=== PATIENT | male | born 1950 | race Caucasian/White ===

== ENCOUNTER → 2016-11-19 | Outpatient (CLI) | payer OTHER ==
--- NOTE | 2016-11-22 09:47 | RAD ---
EXAM DESCRIPTION: Knee,Left Complete CLINICAL HISTORY: 66 years Male, PAIN IN LEFT KNEE IMPRESSION: 4 views of the left knee. There is severe degenerative change of the medial compartment with complete joint space loss, subchondral sclerosis and osteophyte formation. Moderate patellofemoral joint and lateral compartment degenerative change. Small joint effusion. Clips seen within the popliteal fossa. No fracture noted. Electronically signed by: Bill Delgado MD 11/22/2016 9:47 AM CDT
--- NOTE | 2016-11-22 09:48 | RAD ---
EXAM DESCRIPTION: Pelvis CLINICAL HISTORY: 66 years Male, PAIN IN LEFT HIP IMPRESSION: 2 views of the pelvis reveals degenerative change of the pubic symphysis, bilateral sacroiliac joints and lower lumbar spine. Symmetrical and unremarkable joint spaces within the hips. The pelvic ring is intact. Electronically signed by: Bill Delgado MD 11/22/2016 9:47 AM CDT
== END ==
LOC: RAD 11:43
PROVIDERS: ATTEND Orthopaedic Surgery
DX: M25.552 Pain in left hip (principal); M25.562 Pain in left knee; M12.862 Other specific arthropathies, not elsewhere classified, left knee; M12.88 Other specific arthropathies, not elsewhere classified, other specified site

== ENCOUNTER → 2017-01-10 | Outpatient (CLI) | payer MEDICARE | END | disposition home or self-care (01) | LOC: RESP 09:53 | PROVIDERS: ATTEND Orthopaedic Surgery | DX: Z01.818 Encounter for other preprocedural examination (principal) ==

== ENCOUNTER 2017-01-26 05:54 | Inpatient (IN) | payer MEDICARE ==
--- NOTE | 2017-01-24 10:00 | HP ---
CHIEF COMPLAINT: left knee pain. HISTORY OF PRESENT ILLNESS: Mr. Pierre is a 66-year-old male with a history of left knee pain that has been secondary to arthritis and has been worsening for quite sometime. He has had no trauma related to the onset of this. He denies any radiation of pain and denies any neurologic symptoms. The pain happens on a daily basis, occurs when he walks and also occurs with range of motion. He has failed conservative measures and, as such, has requested operative intervention. After discussing the risks, benefits and alternatives to that, the patient has given informed consent. PAST SURGICAL HISTORY: 1. Bilateral carpal tunnel release. MEDICATIONS: Please see his current MAR for an updated list. ALLERGIES: NO KNOWN DRUG ALLERGIES. CODE STATUS: Full code. IMMUNIZATIONS: Up to date. SOCIAL HISTORY: The patient does not drink, smoke or use any illicit drugs. FAMILY HISTORY: None pertinent to today's complaint. REVIEW OF SYSTEMS: Negative except as indicated in the History of Present Illness. PHYSICAL EXAMINATION: VITAL SIGNS: Blood pressure 150/86. Pulse 61. Height 6'1". Weight 253. MENTAL STATUS: The patient is awake, alert, and is able to give a good history and participate in the physical. The patient is oriented to person, place and time. SKIN: Normal tone and turgor. HEENT: Normocephalic, atraumatic. Pupils equal, round and reactive. Mucosal membranes are moist. NECK: Normal range of motion. No thyromegaly, no lymphadenopathy. CHEST: Normal respiratory excursion. CARDIAC: Regular rate and rhythm. No murmurs, rubs or gallops. MUSCULOSKELETAL: The bilateral upper extremities show full active range of motion. He has intact sensation and they are warm and well perfused. He has no deformities. The right lower extremity shows full range of motion of the hip. He has some crepitus in the knee with some mild discomfort, but no varus/ valgus or anterior/posterior laxity. He has full extension with flexion to about 120 degrees. The left knee shows pain with range of motion and he has crepitus throughout. Sensation is intact. He has no varus/valgus or anterior/ posterior laxity. It is warm and well perfused. He has 0 to 115 on that side. IMAGING: X-rays show severe arthritis. ASSESSMENT: 1. Arthritis. PLAN: The plan at this point is for total knee arthroplasty. We have discussed the risks, benefits, and alternatives to that and the patient has given informed consent. [facility][id number] [facility]
[~2017-01-26 05:54] MED LIST: LACTATED RINGERS 1,000 ML ONE; SODIUM CHL 0.9% 100ML MINI-BAG 100 ML IVPB ONE; SODIUM CHLORIDE 0.9% 100ML 100 ML IVPB ONE; SODIUM CHLORIDE 0.9% 250ML 250 ML ONE; TRANEXAMIC ACID 1,000 MG/10 ML VIAL ONE; VANCOMYCIN HCL INJ 1,000 MG VIAL IVPB ONE; ceFAZolin SODIUM 1 GM VIAL ONE
[2017-01-26] MEDS ORDERED: fentaNYL CITRATE INJ 50 MCG/ML AMP ONE (06:16)
[2017-01-26] MEDS ORDERED: MORPHINE SULF *EPIDURAL* 1 MG/ML VIAL ONE (06:16)
[2017-01-26] MEDS ORDERED: LIDOCAINE 2 % GEL 5 ML TUBE TOP ONE (06:17)
[2017-01-26] MEDS ORDERED: LACTATED RINGERS 1,000 ML ONE (06:17)
[2017-01-26] MEDS ORDERED: MIDAZOLAM INJ 5 MG/5 ML VIAL ONE (06:17)
[2017-01-26] MEDS ORDERED: VANCOMYCIN HCL INJ 1,000 MG VIAL IVPB ONE ×4 (06:34→18:21)
[2017-01-26] MEDS ORDERED: ceFAZolin SODIUM 1 GM VIAL ONE ×3 (06:38→15:24)
[2017-01-26] MEDS ORDERED: BUPIVACAINE 0.25% W/EPI 50 ML VIAL INJ ONE (06:38)
[2017-01-26] MEDS ORDERED: PROPOFOL 200 MG/20 ML VIAL IV ONE (07:00)
[2017-01-26] MEDS ORDERED: ONDANSETRON INJ 4 MG/2 ML VIAL IV PRN (07:06)
[2017-01-26] MEDS ORDERED: MAGNESIUM HYDROXIDE 30 ML UD PO PRN (07:06)
[2017-01-26] MEDS ORDERED: MORPHINE SULFATE INJ 10 MG/ML VIAL IV PRN (07:06)
[2017-01-26] MEDS ORDERED: TRANEXAMIC ACID INJ 1,000 MG in SODIUM CHLORIDE 0.9% 100ML 100 ML IVPB ONE (07:06)
[2017-01-26] MEDS ORDERED: MORPHINE SULFATE INJ 10 MG/ML VIAL IM PRN (07:06)
[2017-01-26] MEDS ORDERED: ACETAMINOPHEN 500 MG TAB PO PRN (07:06)
[2017-01-26] MEDS ORDERED: ACETAMINOPHEN 325 MG TAB PO PRN (07:06)
[2017-01-26] MEDS ORDERED: BENZOCAINE-MENTH LOZ (CEPACOL) 1 EA LOZ MT PRN (07:06)
[2017-01-26] MEDS ORDERED: SODIUM CHLORIDE 0.9% (FLUSH) 10 ML SYG IV PRN (07:06)
[2017-01-26] MEDS ORDERED: PROMETHAZINE HCL INJ 12.5 MG in SODIUM CHLORIDE 0.9% 50ML 50 ML IVPB PRN (07:06)
[2017-01-26] MEDS ORDERED: ZOLPIDEM TARTRATE 5 MG TAB PO PRN (07:06)
[2017-01-26] MEDS ORDERED: PROMETHAZINE HCL INJ 25 MG in SODIUM CHLORIDE 0.9% 50ML 50 ML IVPB PRN (07:06)
[2017-01-26] MEDS ORDERED: HYDROcodone 5MG/APAP 325MG 1 EA TAB PO PRN (07:06)
[2017-01-26] MEDS ORDERED: NALOXONE HCL INJ 0.4 MG/ML VIAL IV PRN (07:06)
[2017-01-26] MEDS ORDERED: BISACODYL SUPPOSITORY 10 MG PR PRN (07:06)
[2017-01-26] MEDS ORDERED: ALUMINUM & MAGNESIUM HYDROXIDE 30 ML UD PO PRN (07:06)
[2017-01-26] MEDS ORDERED: MORPHINE PCA 1 MG/ML 100ML 1 BAG in PREMIX BAG 1 BAG IVPB SCH (07:30)
[2017-01-26] MEDS ORDERED: TRANEXAMIC ACID 1,000 MG/10 ML VIAL IV ONE (09:34)
[2017-01-26] MEDS ORDERED: MORPHINE PCA 1 MG/ML 100 ML BAG IVPB ONE ×2 (09:42→09:45)
[2017-01-26] MEDS ORDERED: MORPHINE SULFATE INJ 10 MG/ML VIAL IV ONE ×2 (10:20→10:33)
[2017-01-26] MEDS: IV SET AND CAP CHANGE INJ INJ SCH (13:43)
[2017-01-26] MEDS: MAGNESIUM OXIDE 400 MG TAB PO SCH (13:44)
[2017-01-26] MEDS: DEX 5% W/NACL 0.45% 1000ML 1,000 ML IVS PRN (14:26)
[2017-01-26] MEDS ORDERED: ceFAZolin SODIUM 2 GM in SODIUM CHLORIDE 0.9% 100ML 100 ML IVPB SCH (15:00)
[2017-01-26] MEDS ORDERED: SODIUM CHLORIDE 0.9% 100ML 100 ML IVPB ONE ×2 (15:24→23:59)
[2017-01-26] MEDS: ceFAZolin SODIUM 2 GM in SODIUM CHLORIDE 0.9% 100ML 100 ML IVPB SCH (15:37)
[2017-01-26] MEDS ORDERED: SODIUM CHLORIDE 0.9% 50ML 50 ML ONE (16:48)
[2017-01-26] MEDS ORDERED: PROMETHAZINE HCL INJ 25 MG/ML VIAL ONE (16:48)
--- NOTE | 2017-01-26 17:20 | RAD ---
EXAM DESCRIPTION: Knee,Left 2 or More Views CLINICAL HISTORY: 66 years, Male, TKA COMPARISON: November 19, 2016 TECHNIQUE: Two views of the left knee FINDINGS: Postoperative examination demonstrates total knee replacement with the metallic opaque femoral and tibial components in satisfactory alignment. Intra-articular and soft tissue gas from the current surgery is noted. A lucent patellar articular surface is not identified. Good apposition to the underlying bony matrix is present in satisfactory alignment is noted. IMPRESSION: 1. Satisfactory left total knee replacement. Electronically signed by: Jaciel Arriaga MD 01/26/2017 5:19 PM CDT
[2017-01-26] MEDS ORDERED: SODIUM CHLORIDE 0.9% 250ML 250 ML ONE (18:21)
[2017-01-26] MEDS: VANCOMYCIN HCL INJ 1,000 MG in SODIUM CHLORIDE 0.9% 250ML 250 ML IVPB SCH (18:29)
--- NOTE | 2017-01-26 19:43 | PCM.CORE ---
Physician DVT/VTE - Prophylaxis Currently: Patient already on anticoagulation therapy - Nurse DVT Assessment & Total Each Risk Factor Represents 2 Points: Age 60-74, Major Surgery >45 minutes Each Risk Factor is 1 Point: Obesity (BMI >25) DVT Assessment Score: 5 - 5 or more Very High Risk Treatments: Early Ambulation *, Sequential Compression Device Pharmacological: Enoxaparin 30mg SQ BID
[2017-01-26] MEDS: SIMVASTATIN 20 MG TAB PO SCH (20:34)
[2017-01-26] MEDS: DOCUSATE CALCIUM 240 MG CAP PO SCH (20:34)
[2017-01-26] MEDS: ASPIRIN TABLET 325 MG TAB PO SCH (20:34)
[2017-01-26] MEDS: TEMAZEPAM 15 MG CAP PO PRN (22:10)
[2017-01-26] MEDS: CYCLOBENZAPRINE HCL 10 MG TAB PO PRN (22:10)
[2017-01-26] MEDS: HYDROcodone 10MG/APAP 325MG 1 EA TAB PO PRN (22:10)
--- NOTE | 2017-01-26 22:21 | CONS ---
DATE OF CONSULTATION: 01/26/17 SUPERVISING PHYSICIAN: Christopher Sal M.D. HISTORY OF PRESENT ILLNESS: Mr. Pierre is a 66 year-old male patient with an extensive history of left knee pain secondary to arthritis that has become worse over the last several months. He notes that the pain is on a daily basis and it limits his range of motion and makes it difficult for him to walk and function in his job. He has had multiple attempts at conservative measures but has failed to receive any significant pain relief and as such requested operative intervention by Dr. Rush, orthopedic surgeon. The patient had a total left knee arthroplasty today by Dr. Med Rush. The patient was seen in postoperative state in medical consultation. The patient was in stable condition. PAST MEDICAL HISTORY: 1. Hypertension. 2. Hypercholesterolemia. PAST SURGICAL HISTORY: 1. Coronary artery bypass graft times 4 in 2010. 2. Carpal tunnel surgeries in 2016 bilaterally. 3. Appendectomy. 4. Left arm surgery for an infected wound as a child. HOME MEDICATIONS: 1. Mobic 7.5 mg daily. 2. Lopressor 25 mg daily. 3. Zocor 25 mg at bedtime. 4. Lisinopril 5 mg daily. 5. Aspirin 325 mg daily. ALLERGIES: NO KNOWN DRUG ALLERGIES. FAMILY HISTORY: Noncontributory. 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 He is and lives in [place]. He has never smoked. He denies drinking alcohol or using illicit drugs. REVIEW OF SYSTEMS: CONSTITUTIONAL: Denies any fevers, chills or aches. HEENT: Denies any nasal congestion, vision changes or headaches. RESPIRATORY: Denies any shortness of breath, cough or hemoptysis. CARDIOVASCULAR: Denies any chest pains, palpitations or syncopal episodes. ABDOMEN: Denies any change in bowel habits, constipation, diarrhea, nausea or vomiting. GENITOURINARY: Denies any dysuria, hematuria or other urinary symptoms. EXTREMITIES: As noted in the History of Present Illness, postoperative day zero for a left total knee arthroplasty. NEUROLOGIC: Denies any neurological deficits, syncopal episodes or other concerning neurological events. PHYSICAL EXAMINATION: LABORATORY: Postoperative H&H is pending. RADIOLOGY: No additional radiographic studies prior to postoperatively were obtained. ASSESSMENT: 1. Postoperative day zero for left total knee arthroplasty secondary to advanced arthritis having failed to respond to conservative treatment measures in the outpatient setting requiring surgical intervention for pain control. 2. Severe arthritis of both knees affecting the left knee more than the right currently on NSAIDs. 3. Hypertension on medications. PLAN: Will continue to follow the patient as he advances through physical therapy and rehabilitation efforts postoperatively. Will monitor his blood pressure and treat accordingly. Will anticipate discharge at the discretion of Dr. Rush, Orthopedic Services with discharge planning to be continued prior to discharge. Until then, will continue to monitor the patient closely and treat appropriately. #[id number] [facility]
[2017-01-26] MEDS: ENOXAPARIN SODIUM 30 MG/0.3 ML SYG SUBCU SCH (22:28)
[2017-01-27] MEDS ORDERED: SODIUM CHLORIDE 0.9% 100ML 100 ML IVPB ONE ×2 (00:06→07:31)
[2017-01-27] MEDS ORDERED: ceFAZolin SODIUM 1 GM VIAL ONE ×2 (00:06→07:31)
[2017-01-27] MEDS: ceFAZolin SODIUM 2 GM in SODIUM CHLORIDE 0.9% 100ML 100 ML IVPB SCH ×2 (00:10→07:48)
[2017-01-27] MEDS: CYCLOBENZAPRINE HCL 10 MG TAB PO PRN ×2 (05:05→17:26)
[2017-01-27] MEDS: HYDROcodone 10MG/APAP 325MG 1 EA TAB PO PRN ×3 (05:06→21:46)
[2017-01-27] MEDS ORDERED: VANCOMYCIN HCL INJ 1,000 MG VIAL IVPB ONE (06:00)
[2017-01-27] MEDS ORDERED: SODIUM CHLORIDE 0.9% 250ML 250 ML ONE (06:00)
[2017-01-27] MEDS: VANCOMYCIN HCL INJ 1,000 MG in SODIUM CHLORIDE 0.9% 250ML 250 ML IVPB SCH (06:03)
[2017-01-27] MEDS: ASPIRIN TABLET 325 MG TAB PO SCH (08:30)
[2017-01-27] MEDS: METOPROLOL TARTRATE 25 MG TAB PO SCH (08:31)
[2017-01-27] MEDS: MAGNESIUM OXIDE 400 MG TAB PO SCH (08:31)
[2017-01-27] MEDS: LISINOPRIL 5 MG TAB PO SCH (08:31)
[2017-01-27] MEDS: MELOXICAM 7.5 MG TAB PO SCH (08:31)
--- NOTE | 2017-01-27 08:33 | PN ---
DATE: 01/27/17 Postoperative day 1 SUBJECTIVE: He is doing well, sitting up and eating breakfast. OBJECTIVE: Afebrile. Vital signs stable. Dressing is clean, dry and intact. ASSESSMENT: Status post total knee arthroplasty. PLAN: The plan at this point is for him to being weight-bearing as tolerated today. #[id number] [facility]
--- NOTE | 2017-01-27 08:46 | OP ---
DATE OF PROCEDURE: 01/26/17 PREOPERATIVE DIAGNOSIS: 1. Left knee osteoarthritis. POSTOPERATIVE DIAGNOSIS: 1. Left knee osteoarthritis. PROCEDURE: 1. Left total knee arthroplasty. SURGEON: Med Rush MD. TURBINE OPERATOR: Robert Craft CST, SA-C. ANESTHESIA: General. COMPLICATIONS: None. FINDINGS: Severe arthritis with varus deformity. INDICATION: Mr. Pierre has a history of severe knee pain that has been getting progressively worse. He has failed conservative measures and he has requested operative intervention. After discussing the risks, benefits and alternatives to that, the patient has given informed consent for total knee arthroplasty. PROCEDURE: The patient was brought to the Operating Room and placed in supine position. General anesthesia was induced and the patient's leg was sterilely prepped and draped. Following prepping and draping, the distal femur was exposed and using an intramedullary guide, the distal femoral cut was made. The appropriate sized cutting block was measured, pinned into place, and the anterior, posterior, and chamfer cuts were made. The ACL was transected and the tibia was subluxed. Both the medial and lateral menisci were removed. An intramedullary guide was used to make the proximal tibial cut. The appropriate sized base plate was placed and a trial polyethylene was placed. The trial femur was placed, the knee was reduced, and the knee was taken through a range of motion. The knee was stable in anterior, posterior, varus and valgus stress. The patella tracked anatomically without evidence of subluxation or dislocation. After trialing, the trial components were removed and the bony surfaces were thoroughly irrigated with saline. Following irrigation, the surfaces were dried and the final components were cemented into place. The excess cement was removed and the remaining cement was allowed to cure. The knee was again taken through a range of motion to confirm stability. The wound was then irrigated with saline and closure was performed using PDS to approximate the arthrotomy followed by closure of the subcutaneous tissues with a combination of running and interrupted Monocryl sutures. Sterile dressing was placed. The patient was awoken from anesthesia and taken to Recovery. POSTOPERATIVE INSTRUCTIONS: The patient will be weight-bearing as tolerated on postoperative day 1. COMPONENTS: [employer] Triathlon knee, size 5 femur, size 6 tibia, 9 mm insert. #[id number] [facility]
[2017-01-27] MEDS: ENOXAPARIN SODIUM 30 MG/0.3 ML SYG SUBCU SCH ×2 (10:10→23:09)
[2017-01-27] MEDS ORDERED: MORPHINE PCA 1 MG/ML 100 ML BAG IVPB ONE (11:32)
--- NOTE | 2017-01-27 15:13 | PN ---
SUPERVISING PHYSICIAN: Christopher Sal MD DATE: 01/27/17 SUBJECTIVE: The patient has had fairly good control of the pain. He had a little nausea which resolved with Zofran. He remains afebrile. He has been utilizing his CPM and bedside chair and progressing well with his physical therapy. OBJECTIVE: VITAL SIGNS: Temperature 97.6. Pulse 68. Blood pressure 117/71. Saturation 100% on room air. Respirations 16. I&Os show negative balance of 25 with 1350 in, 1375 out. Weight 117 kg. CHEST: Lungs clear to auscultation bilaterally. HEART: Regular rate and rhythm. ABDOMEN: Soft, nontender. Positive bowel sounds. EXTREMITIES: Iceman in place over the left knee with Stalin bandage in place. Pulses distally are strong with capillary refill brisk. NEUROLOGIC: Alert and oriented times three. LABORATORY: Postoperative hemoglobin 13.3, hematocrit 39.5. ASSESSMENT: 1. Postoperative day 1, left total knee arthroplasty secondary to advanced arthritis, having failed to respond to conservative treatment measures in the outpatient setting and requiring surgical intervention for pain control with surgery being performed by the orthopedic surgeon, Dr. Med Rush. 2. Severe arthritis of both knees affecting the left knee more than the right, currently on nonsteroidal anti-inflammatory drugs. 3. Hypertension on medications. PLAN: The patient is progressing well. We will anticipate hopefully discharging after talking Danny in physical therapy this coming Tuesday. As he continues to progress through his physical therapy and rehabilitation, we will continue to followup the patient closely as needed. Until then, we will continue to monitor the patient closely and treat appropriately. Once ready to discharge, he will need close clinical followup with Dr. Rush as well as continued physical therapy at this point to be determined, but tentatively at the [facility]. #[id number] [facility]
[2017-01-27] MEDS: DEX 5% W/NACL 0.45% 1000ML 1,000 ML IVS PRN (15:55)
[2017-01-27] MEDS: SIMVASTATIN 20 MG TAB PO SCH (20:29)
[2017-01-27] MEDS: DOCUSATE CALCIUM 240 MG CAP PO SCH (20:29)
[2017-01-27] MEDS: TEMAZEPAM 15 MG CAP PO PRN (23:31)
[2017-01-28] MEDS: HYDROcodone 10MG/APAP 325MG 1 EA TAB PO PRN (06:21)
[2017-01-28] MEDS: PANTOPRAZOLE SODIUM TAB 40 MG PO SCH (06:22)
[2017-01-28] MEDS: LISINOPRIL 5 MG TAB PO SCH (08:35)
[2017-01-28] MEDS: ASPIRIN TABLET 325 MG TAB PO SCH (08:35)
[2017-01-28] MEDS: MAGNESIUM OXIDE 400 MG TAB PO SCH (08:35)
[2017-01-28] MEDS: METOPROLOL TARTRATE 25 MG TAB PO SCH (08:35)
[2017-01-28] MEDS: MELOXICAM 7.5 MG TAB PO SCH (08:35)
[2017-01-28] MEDS: SODIUM CHLORIDE 0.9% (FLUSH) 10 ML SYG IV SCH ×2 (08:36→21:20)
[2017-01-28] MEDS: CYCLOBENZAPRINE HCL 10 MG TAB PO PRN (08:37)
[2017-01-28] MEDS: HYDROcodone/IBUPROFEN 7.5/200 1 EA TAB PO PRN ×3 (09:23→19:48)
[2017-01-28] MEDS: ENOXAPARIN SODIUM 30 MG/0.3 ML SYG SUBCU SCH ×2 (11:47→23:06)
--- NOTE | 2017-01-28 13:05 | PN ---
DATE: 01/28/17 SUBJECTIVE: Mr. Pierre seems to be doing well. He has his leg bent at 90 degrees without significant pain. OBJECTIVE: Afebrile. Vital signs stable. The wound is clean. There are no signs or symptoms of infection. ASSESSMENT: Status post total knee arthroplasty. PLAN: The plan at this point is to continue with weight-bearing as tolerate and continue on CPM. #[id number] [facility]
--- NOTE | 2017-01-28 14:55 | PN ---
SUPERVISING PHYSICIAN: Christopher Sal MD DATE: 01/28/17 SUBJECTIVE: The patient continues to do well with his rehab. He has had some issues with pain medicine. We will try to switch him to Vicoprofen today. He has been doing his CPM and is up to 90 degrees. He has been afebrile. OBJECTIVE: VITAL SIGNS: Temperature 97.9. Pulse 69. Blood pressure 114/72. Respirations 18. Saturation 98% on room air. I&Os showing positive balance of 1954 with 3140 in, 1175 out. Weight 217.7 kg. CHEST: Lungs clear to auscultation. HEART: Regular rate and rhythm. ABDOMEN: Soft, nontender. Positive bowel sounds. EXTREMITIES: Left knee bandage is in place with him on CPM. Pulses distally are strong. Capillary refill is brisk. NEUROLOGIC: Alert and oriented times three. ASSESSMENT: 1. Postoperative day 2, left total knee arthroplasty secondary to advanced arthritis, having failed to respond to conservative treatment measures in the outpatient setting and requiring surgical intervention for pain control with surgery being performed by the orthopedic surgeon, Dr. Med Rush. 2. Severe arthritis of both knees affecting the left knee more than the right, currently on nonsteroidal anti-inflammatory drugs. 3. Hypertension on medications. PLAN: We will continue to monitor the patient closely as he progresses through his physical therapy efforts. We will anticipate discharge tomorrow with continued rehabilitation at [facility]. Until discharge, we will continue to monitor the patient closely and treat appropriately. #[id number]/ [facility]
[2017-01-28] MEDS: DOCUSATE CALCIUM 240 MG CAP PO SCH (21:20)
[2017-01-28] MEDS: SIMVASTATIN 20 MG TAB PO SCH (21:20)
[2017-01-29] MEDS: HYDROcodone/IBUPROFEN 7.5/200 1 EA TAB PO PRN ×3 (02:13→11:46)
[2017-01-29 05:42] VITALS: O2SAT 96
[2017-01-29] MEDS: PANTOPRAZOLE SODIUM TAB 40 MG PO SCH (05:42)
[2017-01-29] MEDS: CYCLOBENZAPRINE HCL 10 MG TAB PO PRN (07:47)
[2017-01-29] MEDS: IV SET AND CAP CHANGE INJ INJ SCH (07:47)
[2017-01-29] MEDS: MAGNESIUM OXIDE 400 MG TAB PO SCH (08:55)
[2017-01-29] MEDS: MELOXICAM 7.5 MG TAB PO SCH (08:55)
[2017-01-29] MEDS: ASPIRIN TABLET 325 MG TAB PO SCH (08:56)
[2017-01-29] MEDS: LISINOPRIL 5 MG TAB PO SCH (08:56)
[2017-01-29] MEDS: METOPROLOL TARTRATE 25 MG TAB PO SCH (08:58)
[2017-01-29] MEDS: SODIUM CHLORIDE 0.9% (FLUSH) 10 ML SYG IV SCH (08:59)
[2017-01-29 10:53] VITALS: BP 99/65; TEMP 98.6
[2017-01-29] MEDS: ENOXAPARIN SODIUM 30 MG/0.3 ML SYG SUBCU SCH (11:29)
--- NOTE | 2017-01-29 12:19 | PN ---
DATE: 01/29/17 SUBJECTIVE: Mr. Pierre subjectively is doing really well today. He has been ambulating and has his pain more controlled on Vicoprofen. OBJECTIVE: He is afebrile. Vital signs are stable. Wound is clean. There are no signs or symptoms of infection. ASSESSMENT: 1. Status post total knee arthroplasty. PLAN: The plan at this point is to go ahead and discharge him today. He has been cleared by Physical Therapy. He will followup in about 2 weeks. Today he has been instructed to return immediately should any change in his condition occur. #[id number] [facility]
[2017-01-29] MEDS ORDERED: MAGNESIUM HYDROXIDE 30 ML UD PO ONE (21:00)
[2017-01-29] MEDS ORDERED: BISACODYL SUPPOSITORY 10 MG PR ONE (21:00)
--- NOTE | 2017-01-30 12:44 | DS ---
SUPERVISING PHYSICIAN: Jaciel No M.D. DISCHARGE DIAGNOSIS: 1. Postoperative day 3, left total knee arthroplasty secondary to advanced arthritis, having failed to respond to conservative treatment measures in the outpatient setting and requiring surgical intervention for pain control with surgery being performed by the orthopedic surgeon, Dr. Med Rush. 2. Severe arthritis of both knees affecting the left knee more than the right, currently on nonsteroidal anti-inflammatory drugs. 3. Hypertension on medications. HISTORY OF PRESENT ILLNESS: Mr. Pierre is a 66-year-old male patient with an extensive history of left knee pain secondary to arthritis having become worse over the last several months. He notes that the pain is on a daily basis and it limits him range of motion, and makes it difficult for him to walk and function in his job. He has had multiple attempts at conservative measures but has failed to receive any significant pain relief, and as such requested operative intervention by Dr. Rush, orthopedic surgeon. The patient had a total left knee arthroplasty on 01/26/[address] Med Rush. The patient was seen immediately postoperative state and followed through entire clinical hospitalization. The patient was admitted in stable condition. LABORATORY: Postoperative H&H was 13.3 and 39.5. HOSPITAL COURSE: Mr. Pierre, as noted in the History of Present Illness, had surgery on 01/26/17 and was seen immediately postoperative. He was in stable condition. He had a little bit of nausea on day 1 postoperatively but this was controlled with Zofran which did resolve after advancing his diet. He had good pain control and was able to function with his physical therapy regimen. It was felt on the day of discharge on 01/29/17 that he was clinically stable enough to be discharged to continue with physical therapy in the outpatient setting. PLAN: The patient was discharged on 01/29/17 with instructions to continue with his physical [facility] with close followup in the clinic by Dr. Rush as scheduled. He is to resume his home medications as previous and to take new prescriptions as directed. He was to call Dr. Rush or return to the hospital should he have any concerning symptoms. At discharge, new prescriptions included: 1. Flexeril 10 mg every 8 hours as needed. 2. Xarelto 10 mg daily, #10. Continue pain control with Vicoprofen prescribed by Dr. Rush. Diet at discharge was regular diet as tolerated. Activity is as per Physical Therapy. Weightbearing utilizing a walker. Discharge condition was stable and improved. #[id number] [facility]
== END 2017-01-29 14:00 | disposition home or self-care (01) | DRG 470 ==
LOC: AMB 05:54 → EDSTATUS 07:00 → MS 11:20
PROVIDERS: ADMIT Orthopaedic Surgery; ATTEND Orthopaedic Surgery
PROC: 0SRD0J9 Replacement of Left Knee Joint with Synthetic Substitute, Cemented, Open Approach (ICD-10-PCS; principal; 2017-01-26 07:00)
DX: M17.0 Bilateral primary osteoarthritis of knee (principal); I10 Essential (primary) hypertension; E78.00 Pure hypercholesterolemia, unspecified; Z95.1 Presence of aortocoronary bypass graft; Z79.1 Long term (current) use of non-steroidal anti-inflammatories (NSAID); Z79.82 Long term (current) use of aspirin; Z79.899 Other long term (current) drug therapy

== ENCOUNTER → 2017-02-01 | Outpatient (CLI) | payer MEDICARE ==
--- NOTE | 2017-02-02 10:11 | US ---
EXAM DESCRIPTION: Venous,Lower Extremity LT (accession [id number]), Venous,Lower Extremity RT (accession [id number]) CLINICAL HISTORY: LOCALIZED EDEMA COMPARISON: None Available. TECHNIQUE: Bilateral extremity venous duplex. Wagner scale, color Doppler, and spectral pulse Doppler evaluation was performed FINDINGS: Deep venous system was evaluated with grayscale and color and spectral pulse evaluation from the level of the inguinal ligament at the common femoral vein to below the popliteal fossa with evaluation of the posterior tibial vein. Peroneal vein was evaluated posteriorly as well. Normal flow and augmentation and normal compressibility throughout is present. No filling defects are noted. IMPRESSION: Negative bilateral lower extremity examination for deep venous thrombosis. Electronically signed by: Jaciel Arriaga MD 02/02/2017 10:10 AM CDT
--- NOTE | 2017-02-02 10:11 | US ---
EXAM DESCRIPTION: Venous,Lower Extremity LT (accession [id number]), Venous,Lower Extremity RT (accession [id number]) CLINICAL HISTORY: LOCALIZED EDEMA COMPARISON: None Available. TECHNIQUE: Bilateral extremity venous duplex. Wagner scale, color Doppler, and spectral pulse Doppler evaluation was performed FINDINGS: Deep venous system was evaluated with grayscale and color and spectral pulse evaluation from the level of the inguinal ligament at the common femoral vein to below the popliteal fossa with evaluation of the posterior tibial vein. Peroneal vein was evaluated posteriorly as well. Normal flow and augmentation and normal compressibility throughout is present. No filling defects are noted. IMPRESSION: Negative bilateral lower extremity examination for deep venous thrombosis. Electronically signed by: Jaciel Arriaga MD 02/02/2017 10:10 AM CDT
== END ==
LOC: US 13:44
PROVIDERS: ATTEND Orthopaedic Surgery
DX: R60.0 Localized edema (principal)

== ENCOUNTER → 2018-01-05 | Outpatient (CLI) | payer MEDICARE | LOC: GMAH 12:44 | PROVIDERS: ATTEND Family Medicine | DX: I10 Essential (primary) hypertension (principal); E78.2 Mixed hyperlipidemia; Z12.5 Encounter for screening for malignant neoplasm of prostate | CPT/HCPCS: 84443; 84550; G0103 ==

== ENCOUNTER 2018-07-31 05:16 | Day surgery (SDC) | payer MEDICARE ==
[2018-07-31] MEDS ORDERED: TROP 1%/CYCLOPEN 1%/PHENYL 2% DROPS ONE (11:18)
[2018-07-31] MEDS ORDERED: PROPARACAINE 0.5% OPHTH SOL 15 ML BTTL ONE (11:18)
[2018-07-31] MEDS ORDERED: MIDAZOLAM INJ 2 MG/2 ML VIAL ONE ×2 (12:25→12:44)
[2018-07-31] MEDS ORDERED: PROPARACAINE 0.5% OPHTH SOL 15 ML BTTL RIGHT_EYE ONE (12:38)
[2018-07-31] MEDS ORDERED: BRIMONIDINE 0.2% OPHTH DROPS RIGHT_EYE ONE ×2 (12:48→12:58)
[2018-07-31] MEDS ORDERED: TOBRAMYCIN SULF 0.3 % OPHT SOL 1 DROP RIGHT_EYE ONE ×2 (12:48→12:58)
[2018-07-31] MEDS ORDERED: LIDOCAINE 1% 2 ML VIAL INJ ONE (12:48)
[2018-07-31] MEDS ORDERED: DEXAMETHASONE 0.1% OPHTH SOL 1 DROP RIGHT_EYE ONE ×2 (12:48→12:57)
== END 2018-07-31 13:45 | disposition home or self-care (01) ==
LOC: AMB 05:16
PROVIDERS: ATTEND Ophthalmology
DX: H25.11 Age-related nuclear cataract, right eye (principal); I10 Essential (primary) hypertension; I25.2 Old myocardial infarction; E66.9 Obesity, unspecified; Z95.1 Presence of aortocoronary bypass graft; Z88.8 Allergy status to other drugs, medicaments and biological substances; Z79.82 Long term (current) use of aspirin; Z79.899 Other long term (current) drug therapy
CPT/HCPCS: 00142; 66984; J2250

== ENCOUNTER 2018-08-14 05:35 | Day surgery (SDC) | payer MEDICARE ==
[2018-08-14] MEDS ORDERED: TROP 1%/CYCLOPEN 1%/PHENYL 2% DROPS ONE (08:22)
[2018-08-14] MEDS ORDERED: PROPARACAINE 0.5% OPHTH SOL 15 ML BTTL ONE (08:22)
[2018-08-14] MEDS ORDERED: MOXIFLOXACIN HCL (OPHTH) 1 DROP DROPS ONE (08:22)
[2018-08-14] MEDS ORDERED: MIDAZOLAM INJ 2 MG/2 ML VIAL ONE (10:30)
[2018-08-14] MEDS ORDERED: LIDOCAINE 1% MPF 5 ML VIAL INJ ONE (11:15)
[2018-08-14] MEDS ORDERED: TOBRAMYCIN SULF 0.3 % OPHT SOL 1 DROP LEFT_EYE ONE ×2 (11:16→11:32)
[2018-08-14] MEDS ORDERED: BRIMONIDINE 0.2% OPHTH DROPS LEFT_EYE ONE ×2 (11:16→11:32)
[2018-08-14] MEDS ORDERED: MOXIFLOXACIN HCL (OPHTH) 1 DROP DROPS LEFT_EYE ONE ×2 (11:16→11:32)
[2018-08-14] MEDS ORDERED: DEXAMETHASONE 0.1% OPHTH SOL 1 DROP LEFT_EYE ONE ×2 (11:16→11:32)
== END 2018-08-14 12:14 | disposition home or self-care (01) ==
LOC: AMB 05:35
PROVIDERS: ATTEND Ophthalmology
DX: H26.9 Unspecified cataract (principal); Z88.8 Allergy status to other drugs, medicaments and biological substances; I10 Essential (primary) hypertension; Z96.659 Presence of unspecified artificial knee joint; Z79.82 Long term (current) use of aspirin; Z79.899 Other long term (current) drug therapy
CPT/HCPCS: 00142; J2250

== ENCOUNTER → 2019-01-12 | Outpatient (CLI) | payer MEDICARE | LOC: GMAH 13:37 | PROVIDERS: ATTEND Family Medicine | DX: I10 Essential (primary) hypertension (principal); Z12.5 Encounter for screening for malignant neoplasm of prostate | CPT/HCPCS: 84443; 84550; G0103 ==